=== PATIENT | male | born 1940 | race Caucasian/White ===

== ENCOUNTER 2016-08-07 15:06 | Inpatient (IN) | payer MEDICARE ==
--- NOTE | ~2016-08-07 | TEE ---
Transesophageal Echocardiogram [facility] [address] [place]. [address] NAME: ISAIAH MARIA : 42 STATUS : ADM IN [facility]#: [id number] AGE: 76 ADM/REG DATE : 08/07/16 MR#: [id number] REPORT SERV DATE: 08/13/16 DICTATED BY: STALIN CLEMENTE DATE: 08/13/16 REPORT STATUS : Draft TRANSCRIBED BY: MODL DATE: 08/13/16 VIANCA REPORT INDICATION: This is a 76-year-old male with MSSA bacteremia to rule out endocarditis. Informed consent was obtained, signed on the chart prior to proceeding. A time-out was performed. Sedation was per Anesthesia, and esophageal intubation was without difficulty. TECH: TD. RECORDING QUATLITY: The overall quality of study was adequate. PROCEDURE PERFORMED: 3D interrogation of the central venous catheter tip was performed with personal online manual manipulation of the 3D data set to further assess for possible vegetation. FINDINGS: Valves: 1. The aortic valve morphology is trileaflet with adequate mobility. There is mild sclerosis and mild degenerative changes with no stenosis. There is mild aortic regurgitation. Mobile mildly thickened leaflets. Free margins are noted in off axis images, but there are no vegetations seen. 2. The mitral valve morphology is normal with mildly thickened leaflets and adequate mobility. There is no prolapse. There were no valvular vegetations. There was mild mitral regurgitation. 3. The pulmonic valve was grossly normal with adequate mobility. There was trace pulmonic regurgitation. There were no valvular vegetations seen. 4. The tricuspid valve morphology is normal with fully mobile leaflets. The valve was somewhat suboptimally seen. There were no valvular vegetations seen. There was trace tricuspid regurgitation. CHAMBERS: 1. The left atrium appears mildly to moderately dilated. There was no mass thrombus seen. 2. The left ventricle appears grossly normal in size with a visually estimated LVEF is 55%. There were no regional wall motion abnormalities. 3. The right atrium appears mildly enlarged. The superior and inferior vena cava appear normal. There is a central venous catheter tip noted traversing the superior vena cava into the right atrium terminating near the tricuspid valve. There was a small Chiari network associated with the eustachian valve that is noted. There was a tiny independently mobile echodensity associated with the catheter tip that appears to be independent of the curing network. This is consistent with possible tiny vegetation versus old chronic fibrinous changes from a chronic indwelling catheter. 4. The right ventricle was normal in size with grossly normal systolic function. OTHER: The interatrial septum was examined with multiple angulations and there was a tiny PFO with trivial [id number] interatrial shunt noted by color Doppler. There is no pericardial effusion. There was a trivial pleural effusion. The descending thoracic aorta was noted and appeared normal in caliber with mild complex atherosclerotic changes. The Transesophageal Echocardiogram [address] [address] NAME: ISAIAH MARIA : 42 STATUS : ADM IN PAT#: [id number] AGE: 76 ADM/REG DATE : 08/07/16 MR#: [id number] REPORT SERV DATE: 08/13/16 DICTATED BY: STALIN CLEMENTE. DATE: 08/13/16 REPORT STATUS : Draft TRANSCRIBED BY: MODL DATE: 08/13/16 aortic root was mildly dilated. COMPLICATIONS: None. CONCLUSION: 1. TINY INDEPENDENTLY MOBILE ECHODENSITY ASSOCIATED WITH A CENTRAL VENOUS CATHETER TIP NEAR THE TRICUSPID VALVE IN THE RIGHT ATRIUM. THIS IS CONSISTENT WITH POSSIBLE VEGETATION VERSUS OLD FIBRINOUS CHANGES FROM A CHRONIC INDWELLING CENTRAL VENOUS PORT CATHETER. 2. NO VALVULAR VEGETATIONS IDENTIFIED. 3. AORTIC VALVE SCLEROSIS WITH MILD REGURGITATION AND NO STENOSIS. 4. MILD MITRAL REGURGITATION. 5. BIATRIAL ENLARGEMENT. 6. NORMAL LV SIZE WITH PRESERVED EF. 7. TINY PATENT FORAMEN OVALE. 8. MILDLY ENLARGED AORTIC ROOT. 9. ATHEROSCLEROSIS OF THORACIC AORTA, OUTLINED ABOVE. AEA/FIORELLA Stalin Clemente M.D. / [id number] CC: Parth Epstein MD
--- NOTE | ~2016-08-07 | OP ---
Record Of Operation [facility] [address] [place]. [address] NAME: ISAIAH MARIA : 44 STATUS : DIS IN PAT#: [id number] AGE: 76 ADM/REG DATE : 08/07/16 MR#: [id number] REPORT SERV DATE: 08/30/16 DICTATED BY: MATEUS ALICEA DATE: 08/30/16 REPORT STATUS : Draft TRANSCRIBED BY: FIORELLA DATE: 08/30/16 DATE OF PROCEDURE: 08/14/2016 PREOPERATIVE DIAGNOSIS: Infected Port-A-Cath. POSTOPERATIVE DIAGNOSIS: Infected Port-A-Cath. OPERATION PERFORMED: Removal of infected Port-A-Cath. SURGEON: Mateus Alicea M.D. ANESTHESIA: General. ESTIMATED BLOOD LOSS: Less than 10 mL. IV FLUIDS: Adequate. DESCRIPTION OF OPERATION: After appropriate sedation, the patient was prepped and draped in proper sterile fashion. Skin and subcutaneous tissues overlying the Port-A-Cath were infiltrated with local anesthesia. Incision was made directly over the previous scar, subcutaneous tissues were incised down to the port capsule. The port capsule was incised. The port was removed. The catheter was backed out with the tip intact. There was no evidence of purulence. No evidence of active infection. The skin was closed loosely using interrupted 3-0 Vicryl sutures. Steri-Strips and dressings were then placed. The patient was taken to recovery room in satisfactory condition. KEMAL/FIORELLA Mateus Alicea M.D. / [id number] CC: Parth Epstein MD
--- NOTE | ~2016-08-07 | HP ---
History And Physical [facility] [id number] [place]. [address] NAME: ISAIAH MARIA : 44 STATUS : ADM IN [facility]#: [id number] AGE: 76 ADM/REG DATE : 08/07/16 MR#: [id number] REPORT SERV DATE: 08/08/16 DICTATED BY: KARY RICHARDS II DATE: 08/07/16 REPORT STATUS : Draft TRANSCRIBED BY: MODL DATE: 08/07/16 DATE OF ADMISSION: 08/07/2016 CHIEF COMPLAINT: Severe right foot pain and swelling. HISTORY OF PRESENT ILLNESS: The patient is a 76-year-old male with a history of metastatic non-small cell lung cancer, coronary artery disease, hypertension, CHF, and COPD, who presented to [facility] ER due to worsening right foot pain and swelling since this past Friday. The patient denies any trauma to the area. It happened spontaneously and has been slowly getting worse. He has some redness as well as swelling and he can no longer weightbear. In the ER, x-ray of the foot is fairly unremarkable, but he does have quite elevated CRP, elevated white count, and tachycardia concerning for sepsis, so the patient will be admitted on the Hospital Service. Otherwise, the patient denies any chest pain, shortness of breath, nausea, vomiting, diarrhea, or abdominal pain. Of note, the patient has been followed by Dr. Santos of [facility] for his metastatic lung cancer, however, now no longer a candidate for any further treatment, and hospice was actually recommended recently; however, the patient is refusing as he is otherwise fairly still functional up until his foot pain. REVIEW OF SYSTEMS: A 10-point review of systems is otherwise negative except for HPI. PAST MEDICAL HISTORY: 1. Metastatic ecz-pevac-dtad lung cancer to bilateral lungs, previously followed by Dr. Santos. No longer on chemoradiation. 2. Coronary artery disease, status post stent. 3. Burkitt lymphoma, treated with chemotherapy. 4. Hypertension. 5. Debilitating and disfiguring rheumatoid arthritis. 6. Ventricular tachycardia with previous and transient defibrillator since removed. 7. Peptic ulcer disease. 8. Hyperlipidemia. 9. Diastolic congestive heart failure. 10.Previous alcoholism, but quit in . 11.Renal artery stenosis, status post stent. 12.Urinary tract infections. 13.Chronic obstructive pulmonary disease. 14.History of pneumonia. PAST SURGICAL HISTORY: Abdominal aortic aneurysm repair. ALLERGIES: PENICILLIN. SOCIAL HISTORY: Quit smoking in 2010. Quit alcohol in . He is and lives in [place], [place]. 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 History And Physical [address] [address] NAME: ISAIAH MARIA : 44 STATUS : ADM IN [facility]#: [id number] AGE: 76 ADM/REG DATE : 08/07/16 MR#: [id number] REPORT SERV DATE: 08/08/16 DICTATED BY: KARY RICHARDS II DATE: 08/07/16 REPORT STATUS : Draft TRANSCRIBED BY: FIORELLA DATE: 08/07/16 FAMILY HISTORY: Significant for heart disease in the sister. Also cancer in a sister. Mother with colon cancer. Strong family history of rheumatoid arthritis. HOME MEDICATIONS: Albuterol, Coreg, Plavix, Decadron, Marinol, [place], Ativan, Nitrostat, Compazine, Zocor, and Spiriva. PHYSICAL EXAMINATION: VITAL SIGNS: Blood pressure 102/64, pulse 114, temperature 98.5, respirations 18, and O2 saturation 100% on room air. GENERAL: The patient is alert and oriented x3. No acute distress. NECK: Supple. Nontender. No lymphadenopathy or thyromegaly. HEENT: Moist mucous membranes. Poor dentition. Pupils are equal, round, and reactive to light. Conjunctivae clear. RESPIRATORY: Diffuse bilateral crackles. No wheezes or rhonchi. Nonlabored breathing. CARDIOVASCULAR: Irregularly irregular. No murmurs, rubs, or gallops. ABDOMEN: Soft, nontender, nondistended. Normoactive bowel sounds. EXTREMITIES: The right lower extremity shows swelling to his right foot with diffuse tenderness to palpation and tenderness with movement. Erythema over the anterior surface of the metatarsals. Doppler with positive pulses. NEUROLOGIC: No focal deficits. SKIN: No lesions, rashes, or wounds. LABORATORY DATA: WBC 14.7, hemoglobin 13.8, platelets 241. Sedimentation rate 78. sodium 137, potassium 4.3, chloride 102, CO2 of 25, BUN 23, creatinine 0.94, glucose 89. Calcium 8.2, albumin 22, T bili 0.9, alkaline phosphatase 151, ALT 55, AST 42. CRP 198. RADIOGRAPHIC DATA: Right foot x-ray shows osteopenia, otherwise no acute injury or degenerative arthropathy. ASSESSMENT AND PLAN: The patient is a 76-year-old male with: 1. Questionable right foot osteomyelitis with apparent cellulitis. We will continue the patient's vancomycin and Rocephin. We will check blood cultures and MRI. 2. Metastatic lung cancer, currently hospice candidate. The patient is refusing hospice at this point in time. 3. Atrial fibrillation with rapid ventricular response with no documentation in the past of any history of atrial fibrillation likely brought on by the patient's underlying sepsis, so at this point, we will rate control with Cardizem, and given the patient's underlying condition, we will avoid any aggressive workup at this point in time. 4. Coronary artery disease. Continue the patient's Coreg and Plavix. 5. Severe RA, not currently being treated. 6. Chronic obstructive pulmonary disease. Lungs actually clear except for some chronic dry crackle. Supplemental O2 as needed. 7. Chronic diastolic congestive heart failure, currently compensated. 8. The patient is a full code. History And Physical [address] [address] NAME: ISAIAH MARIA : 44 STATUS : ADM IN [facility]#: [id number] AGE: 76 ADM/REG DATE : 08/07/16 MR#: [id number] REPORT SERV DATE: 08/08/16 DICTATED BY: KARY RICHARDS II DATE: 08/07/16 REPORT STATUS : Draft TRANSCRIBED BY: FIORELLA DATE: 08/07/16 MAGGI/FIORELLA Kary Richards II, MD / [id number] CC: Kary Richards II, MD NO PCP
--- NOTE | ~2016-08-07 | CN ---
Consultation Report [facility] [address] [place]. [address] NAME: ISAIAH MARIA : 44 STATUS : ADM IN [facility]#: [id number] AGE: 76 ADM/REG DATE : 08/07/16 MR#: [id number] REPORT SERV DATE: 08/09/16 DICTATED BY: TORO JOHNSON DATE: 08/09/16 REPORT STATUS : Draft TRANSCRIBED BY: MODL DATE: 08/09/16 INFECTIOUS DISEASE CONSULT DATE OF CONSULTATION: REASON FOR REFERRAL: Staph sepsis. HISTORY OF PRESENT ILLNESS: The patient is a 76-year-old male. He has history of hypertension, coronary artery disease, congestive heart failure, chronic obstructive pulmonary disease, extensive tobacco abuse history in the past. He has metastatic non-small cell cancer of the lung that has progressed and is no longer a candidate for any more chemotherapy. He came in on 08/07/2016, complaining of about two to three days of increasing pain in his right foot. He denied injuring it, has just become increasingly sore, painful, red, and swollen. He was afebrile, but had an elevated white blood cell count when he presented 14,000, an elevated sedimentation rate is 78. So, concern was raised for infection. He appeared generally ill. Cultures were taken. He was started on vancomycin and cefepime. His blood cultures have now returned positive too for methicillin- sensitive Staph aureus. With the antibiotics, his foot redness, swelling, and pain have all improved rapidly, and he says it is not really bothering him anymore. He has pain in other joints, but has rheumatoid arthritis and chronic swelling and pain in those. He also has a Port-A-Cath that he was getting his chemotherapy, states he has not had any increased pain and redness there. No purulence. PAST MEDICAL HISTORY: Otherwise unremarkable. MEDICATIONS: As mentioned above. ALLERGIES: HE IS ALLERGIC TO PENICILLIN, WHICH CAUSES A RASH BUT HAS TAKEN CEPHALOSPORIN WITHOUT INCIDENT IN THE PAST. HE IS RETIRED, . PREVIOUSLY SMOKED. ALSO HAD PREVIOUS HISTORY OF ALCOHOL ABUSE, BUT HAS NOT DRUNK IN 20 YEARS. FAMILY HISTORY: Noncontributory. PHYSICAL EXAMINATION: GENERAL: Chronically ill-appearing, elderly, male, lying quietly in bed. He is alert and oriented x3. VITAL SIGNS: His temperature here has been normal. It is 97.8 at present with a pulse of 84, respirations 16, blood pressure 173/90, weight 72 kg. HEENT: Sclerae clear. No oral lesions. NECK: Supple without meningeal signs. LUNGS: There are crackles heard in the bases bilaterally and generally decreased breath sounds consistent with emphysema. HEART: Regular rate and rhythm. I do not hear well enough to determine if there is a murmur. Consultation Report [facility] [address] [place]. [address] NAME: ISAIAH MARIA : 44 STATUS : ADM IN PAT#: [id number] AGE: 76 ADM/REG DATE : 08/07/16 MR#: [id number] REPORT SERV DATE: 08/09/16 DICTATED BY: TORO JOHNSON DATE: 08/09/16 REPORT STATUS : Draft TRANSCRIBED BY: FIORELLA DATE: 08/09/16 ABDOMEN: Soft, nontender. Positive bowel sounds. EXTREMITIES: He has multiple ecchymoses, all of his extremities. None of which appear to be acute. His right foot is swollen compared to the left, but not warm and red and not tender. This appears generally edematous. LABORATORY DATA: White blood cell count was 14.7, when he came in it was 6.9 today with hematocrit 32.5, platelets 220, 81 segs, 4 bands on the initial diff. Sedimentation rate 78. BUN and creatinine 24 and 0.85. He had an MRI of the foot that shows cellulitis possible tenosynovitis, but no osteomyelitis. IMPRESSION: Methicillin-sensitive Staph aureus sepsis. Source to consider would be first of all the foot since this is what he came in with, but it does not appear that it is acutely infected at present on exam. Secondly, his Port-A-Cath could be the source. Finally a possible endocarditis. RECOMMENDATIONS: 1. Change antibiotics to Ancef. 2. Echocardiogram. 3. Repeat the blood cultures in about two days and if those continue to be positive, has consider removing the port and at this point, I do not think any surgical intervention is needed on his foot. Finally I will follow the patient with you. I appreciate very much your consulting on this patient. IDA/FIORELLA Toro Johnson M.D. / [id number] CC: Andres Louis II, MD
--- NOTE | ~2016-08-07 | DS ---
Discharge Summary [facility] [address] [place]. [address] NAME: ISAIAH MARIA : 44 STATUS : DIS IN PAT#: [id number] AGE: 76 ADM/REG DATE : 08/07/16 MR#: [id number] REPORT SERV DATE: 08/17/16 DICTATED BY: SEGUN OBRIEN DATE: 08/16/16 REPORT STATUS : Draft TRANSCRIBED BY: MODL DATE: 08/16/16 ADMISSION DATE: 08/07/2016 DISCHARGE DATE: 08/16/2016 DISCHARGE DIAGNOSES: 1. Bacteremia methicillin-sensitive Staphylococcus aureus. 2. Right foot cellulitis/tenosynovitis. 3. Right elbow pain. 4. Atrial fibrillation, paroxysmal. 5. Non-small cell lung cancer, metastasis/Burkitt lymphoma. 6. Chronic obstructive pulmonary disease. CONSULTATIONS: 1. Infectious Disease, Dr. Tello Encarnacion. 2. Orthopedic, Dr. Jayme Hoang. IMAGING STUDIES: 1. Foot x-ray, 08/07/2016. Impression: Osteopenia. No acute injury or severe degeneration noted. 2. MRI of the lower extremity, 08/07/2016. Impression: Cellulitis and tenosynovitis identified. No osteomyelitis changes noted. 3. Right elbow, 08/08/2016. Multiple lytic areas involving the distal right humerus and the proximal ulnar and radius that may represent a benign bone cyst. If this is a history of malignancy there could be a possibility to represent metastatic disease. 4. VIANCA on 08/13/[address] Stalin Gonzalez. HOSPITAL COURSE: Please refer to history and physical dictated by Dr. Andres Louis on 08/07/2016 for complete admission details as well as consultation note by Dr. Hoang and Dr. Tello Encarnacion. The patient is a 76-year-old male, who presents with a history of metastatic non-small cell lung cancer. He presented to [facility] with complaints of severe right foot pain and swelling. The patient stated at the time of admission, the pain had been increasing in intensity. Imaging was obtained in the emergency room which was unremarkable, but noted an elevated CRP and elevated white count. The patient was tachycardic. The patient was admitted to the hospital for further evaluation. 1. Bacteremia. The patient had two positive blood cultures were noted MSSA. ID was consulted to see. Antibiotics were per Infectious Disease. Port-A-Cath was concerning for infection, this was removed and this was cultured. The patient did undergo an echocardiogram which did rule out endocarditis and was unremarkable. The patient was initially on vancomycin and Rocephin, this was changed to Ancef per Infectious Disease. The patient will be discharged home and complete Ancef through 08/29/2016. PICC line was placed prior to discharge. Home Health will follow the patient, will have weekly lab work. 2. Right foot cellulitis. Imaging was obtained which is noted above. The patient did deny trauma or injury to the area. Lower extremity did appear edematous with redness, Discharge Summary [facility] [id number] [facility] [place]. [address] NAME: ISAIAH MARIA : 44 STATUS : DIS IN [facility]#: [id number] AGE: 76 ADM/REG DATE : 08/07/16 MR#: [id number] REPORT SERV DATE: 08/17/16 DICTATED BY: SEGUN OBRIEN DATE: 08/16/16 REPORT STATUS : Draft TRANSCRIBED BY: FIORELLA DATE: 08/16/16 was evaluated by Orthopedic. The patient did undergo a joint aspiration at bedside less than 1 mL of fluid was expressed, was noted blood tinged. Again, the patient is being followed by Dr. Tello Encarnacion with antibiotic. The patient has been able to bear weight on ankle. 3. Right elbow pain, acute. This has been ongoing, slightly tender. Imaging was obtained which is noted above. No intervention was indicated at this time. 4. Atrial fibrillation. This has been stable during his hospital stay. We will continue Plavix and the Rythmol upon discharge. 5. Non-small cell lung cancer with metastasis/Burkitt lymphoma. The patient is appropriate for hospice, but the patient did decline at this time. The patient is still being followed by Dr. Santos. 6. Chronic obstructive pulmonary disease. The patient has had no exacerbation during his stay. He will be monitored by primary care. This patient is being discharged home in hemodynamically stable condition. He will follow up with his primary care in two weeks and will continue to have weekly lab work with home health. Antibiotic will continue through 08/29/2016. DISCHARGE MEDICATIONS: 1. Coreg 12.5 mg one p.o. twice daily. 2. Ancef 2 g IV every 8 hours. 3. Plavix 75 mg one p.o. daily. 4. Decadron 4 mg one p.o. twice daily. 5. Marinol 10 mg p.o. every 8 hours. 6. MiraLAX powder one pack p.o. daily. 7. Zocor 20 mg one p.o. daily. 8. Spiriva inhaler one cap inhale daily. 9. ProAir inhaler two puffs inhale twice daily p.r.n. for shortness of breath. 10.Hydrocodone 7.5/325 mg one p.o. every 8 hours p.r.n. for pain. 11.Ativan 1 mg one p.o. twice daily. 12.Nitroglycerin 0.4 mg sublingual p.r.n. chest pain. 13.Compazine 10 mg p.o. every 4 to 6 hours p.r.n. for nausea. This discharge took less than 30 minutes. SIDNEY/FIORELLA Segun Obrien NP / [id number] CC: Parth Epstein MD
--- NOTE | ~2016-08-07 | IDS ---
Interim Discharge Summary [facility] [address] [place]. [address] NAME: ISAIAH MARIA : 44 STATUS : ADM IN [facility]#: [id number] AGE: 76 ADM/REG DATE : 08/07/16 MR#: [id number] REPORT SERV DATE: 08/13/16 DICTATED BY: DATE: REPORT STATUS : Draft TRANSCRIBED BY: MODL DATE: 08/12/16 ADMISSION DATE: 08/07/2016 DISCHARGE DATE: DISCHARGE DATE: Unknown. Interim summary covers dates of service between 08/08/2016 and 08/12/2016. CONSULTATIONS: 1. Dr. Tello Encarnacion, Infectious Disease. 2. Jayme Hoang, Ortho/Podiatry. INTERIM DIAGNOSES: 1. Bacteremia, MSSA. 2. Right foot cellulitis/tenosynovitis. 3. Right elbow pain. 4. Atrial fibrillation, paroxysmal. 5. Non-small cell lung cancer, metastases/Burkitt lymphoma. 6. Chronic obstructive pulmonary disease, chronic. HOSPITAL COURSE: 1. Bacteremia. The patient had two positive of two blood cultures collected. MSSA. ID is following daily. Exact etiology is unclear. However, patient also has right foot cellulitis/tenosynovitis. Id initially had concern for left Port-A-Cath infection; however, second set of blood cultures while on antibiotics, preliminary result no growth at one day. Echocardiogram to rule out endocarditis was unremarkable. VIANCA is pending for in the morning. Continue antibiotics, to be managed per Infectious Disease. The patient was initially placed on vancomycin and Rocephin. The patient is now on single agent Ancef. The patient is afebrile and white blood cell count is within normal limits, however, has slowly trended up over the past several days. Need to monitor closely for poor response to antibiotic therapy. 2. Right foot cellulitis/tenosynovitis the patient was hospitalized in March for similar symptoms to include ulcers to bilateral ankles. Cause of cellulitis is unclear. The patient denies recent trauma or injury. Foot initially appeared edematous with erythema to the dorsal aspect. Erythema resolved with antibiotic; however, edema has increased over the past 24 hours. The patient had decrease in pain upon initial antibiotic therapy; however, the pain has now increased and patient is suffering significant pain associated with weightbearing which is making it difficult to ambulate. PT was consulted for fall risk recommendations. The patient declined physical therapy intervention as well as recommendation for home health care at discharge. 3. Right elbow pain acute, several days ago, patient's right elbow was tender and slightly edematous. X-ray obtained indicated bone cyst versus metastatic disease. No intervention is indicated. Edema has subsided and pain has lessened but still present. 4. Atrial fibrillation, paroxysmal, the patient's heart rate is stable. Continue Plavix. The patient's rhythm is currently normal sinus. Initiate defensive monitoring if heart Interim Discharge Summary [facility] [address] [place]. [address] NAME: ISAIAH MARIA : 44 STATUS : ADM IN PAT#: [id number] AGE: 76 ADM/REG DATE : 08/07/16 MR#: [id number] REPORT SERV DATE: 08/13/16 DICTATED BY: DATE: REPORT STATUS : Draft TRANSCRIBED BY: MODL DATE: 08/12/16 rate is equal to or greater than 90. The patient did initially have atrial fibrillation with RVR upon admission and diltiazem was started. The patient converted back to normal sinus rhythm and was confirmed by EKG. Heart rate was running in the 60s and diltiazem was discontinued. Home dose of carvedilol has been continued. 5. Non-small cell lung cancer with metastasis/Burkitt lymphoma. The patient is not a candidate for future treatment but declined hospice. The patient is still followed up occasionally by Dr. Santos. 6. Chronic obstructive pulmonary disease, chronic. The patient has no signs or symptoms of acute exacerbation. Continue inhaler. Nebulizer treatments have not been indicated at this time. If they are warranted, heart rate needs to be monitored closely. DISPOSITION PLAN: Date of discharge is undetermined secondary to unclear source of bacteremia and cytology pending from fine-needle aspiration of the right foot. CARLA/FIORELLA JEREMY Deal / [id number] CC: Andres Louis II, MD
--- NOTE | ~2016-08-07 | CN ---
Consultation Report [facility] [address] [place]. [address] NAME: ISAIAH MARIA : 44 STATUS : ADM IN [facility]#: [id number] AGE: 76 ADM/REG DATE : 08/07/16 MR#: [id number] REPORT SERV DATE: 08/13/16 DICTATED BY: LM DUMONT DATE: 08/13/16 REPORT STATUS : Draft TRANSCRIBED BY: MODMariaelena DATE: 08/13/16 DATE OF CONSULTATION: 08/12/2016 REASON FOR CONSULTATION: Possible right ankle joint sepsis. HISTORY OF PRESENT ILLNESS: The patient is a 76-year-old white male who presented to the hospital on the relating a two to three day history of pain in his right foot. The patient denies injury to the foot, denies open wounds or bleeding to the foot, but does have a previous history of wounds on the foot. He was started on IV antibiotics and blood cultures were positive. Initial white count upon presentation was 14 and sed rate was 78. The and patient relate significant improvement to the foot currently with redness having gone away as well as improved swelling. The patient states he is able to walk on the foot with minimal pain at this time. PAST MEDICAL HISTORY: Includes hypertension, coronary artery disease, CHF, COPD, and metastatic non-small cell cancer of lung. MEDICATIONS: List of medications reviewed in chart. ALLERGIES: PENICILLIN. SOCIAL HISTORY: Previous smoker. His is at bedside. Previous history of alcohol abuse. FAMILY HISTORY: Unremarkable. REVIEW OF SYSTEMS: No other pertinent findings on review of systems other than previously stated above. Currently denies chest pain. Currently denies nausea, vomiting, fever, or chills. PHYSICAL EXAMINATION: GENERAL: The patient is seen at bedside, resting comfortably with family present including his . He is a frail white male, resting, in no apparent distress. Alert and oriented x3. VITAL SIGNS: Currently, his vital signs are stable. VASCULAR STATUS: Intact. HEENT: Normocephalic and atraumatic. No visible drainage. Missing teeth. LUNGS: Unlabored breathing with symmetrical effort. CARDIOVASCULAR: Palpable pedal pulses. Regular rate. There is no erythema to the bilateral foot or ankles. ABDOMEN: Nondistended. DERMATOLOGIC: There are no open lesions. No macerations appreciated. There is no erythema. There is no increased skin temperature. There is pitting edema to the right ankle. There is no soft tissue crepitus. Again, no drainage. MUSCULOSKELETAL: There is mild pain to the right ankle. There is no pain with range of Consultation Report [facility] [address] [place]. [address] NAME: ISAIAH MARIA : 44 STATUS : ADM IN PAT#: [id number] AGE: 76 ADM/REG DATE : 08/07/16 MR#: [id number] REPORT SERV DATE: 08/13/16 DICTATED BY: LM DUMONT DATE: 08/13/16 REPORT STATUS : Draft TRANSCRIBED BY: MODL DATE: 08/13/16 motion. Again, there is no soft tissue crepitus. There is no pain to the flexor tendons including the posterior tibial and FHL and FDL with palpation and with range of motion of the dorsiflexion and plantarflexion of the digits. Again, no increased skin temperature and no erythema is present. Pitting edema again is present. LABORATORY DATA: White count 6.9, sed rate 78. IMAGING: MRI showed some mild fluid within the tibiotalar joint anteriorly. There was fluid as well concerning for synovitis posteriorly on the flexor tendons. ASSESSMENT: Evaluate for septic ankle/monitor for infectious tenosynovitis. PLAN: Today, bedside joint aspiration was performed under local anesthesia utilizing aseptic technique, Betadine prep was performed. Upon aspiration of the ankle joint, less than 1 mL of fluid was expressed, this was not purulent in nature, it was more of blood tinged. Orders were written for crystal analysis, Gram stain, and cell count. As far as the potential infectious tenosynovitis is concerned, the clinical picture is not very impressive, however, I will monitor this as possible I and D may need to be performed. Clinically, there is no erythema and there is minimal to no pain to those tendons. We will discuss with Dr. Encarnacion. Continue IV antibiotics per Dr. Encarnacion, and I will follow up with the patient. SHRADDHA/FIORELLA Una Noonan#: [id number] / [id number] CC: Parth Epstein MD NO PCP
[~2016-08-07 15:06] MED LIST: ALBUTEROL5 INH; ALTACE10 MG PO; AMB5 PO; ASA5GR PO; ASAB PO; AT25 PO; ATV1 PO; BACDS PO; COMP10B PO; COREG12 PO; COREG25 PO; DEX4 PO; FOLIC PO; KLONO5 PO; LEVAQUIN750 MG PO; LIPITOR20 PO; LOP50 PO; LORT7 PO; LORTAB 5 PO; MARINOL10 MG PO; NITROQUICK0.4 MG SL; NITROSTAT0.4 MG SL; NORCO1 TA2 PO; PLAVIX PO; PRIN10 PO; PRIN20 PO; PROVHFA INH; SENTAB PO; SPIRIVA INH; STERAPRED DS10 MG PO; T PO; ULTRAM50 PO; Z300 PO; ZITH250 PO; ZOCOR20 PO; ZOCOR40 PO; ZOFRAN8 PO
[2016-08-07 15:29] LABS: HEMATOCRIT 41.7 % (40.0-51.0); HEMOGLOBIN 13.8 g/dL (13.6-17.8); MEAN CORPUS HGB CONC 33.1 g/dL (32.0-36.0); MEAN CORPUSCULAR HEMOGLOB 29.3 pg (26.0-34.0); MEAN PLATELET VOLUME 9.5 fL (9.2-13.0); RBC DISTRIBUTION WIDTH 17.4 % (12.0-16.0); RED CELL COUNT 4.71 10/6/uL (4.7-6.1); WHITE BLOOD CELLS 14.7 10/3/uL (4.5-10.5)
[2016-08-07 15:30] LABS: DIFFERENTIAL ORDERED Y; MEAN CORPUSCULAR VOLUME 88.5 fL (80-100); PLATELET COUNT 241 10/3/uL (150-400)
[2016-08-07 15:44] LABS: A/G RATIO 0.5 (0.7-1.9); ALBUMIN 2.2 G/DL (3.5-5.0); BUN (BLOOD UREA NITROGEN) 23 MG/DL (6-23); CALCIUM, SERUM 8.2 MG/DL (8.5-10.4); CHLORIDE, SERUM 102 MMOL/L (96-112); CO2 (CARBON DIOXIDE) 25 MMOL/L (24-34); CREATININE 0.94 MG/DL (0.70-1.30); GFR AFRICAN AMERICAN 92 ML/MIN (>=60); GFR NON AFRICAN AMERICAN 80 ML/MIN (>=60); GLOBULIN 4.5 G/DL (2.5-4.1); GLUCOSE, SERUM 89 MG/DL (60-99); POTASSIUM, SERUM 4.3 MMOL/L (3.5-5.3); SGOT(AST) 42 U/L (5-40); SGPT(ALT) 55 U/L (5-65); SODIUM, SERUM 137 MMOL/L (135-148); TOTAL BILIRUBIN 0.9 MG/DL (0-1.2); TOTAL PROTEIN 6.7 G/DL (6.0-8.5)
[2016-08-07 15:45] LABS: ALKALINE PHOSPHATASE 151 U/L (45-117)
[2016-08-07 16:11] LABS: ANISOCYTOSIS 1+ (5-10/OIF) (0-5/OIF); BAND NEUTROPHILS 4 %; LYMPHOCYTES 11 %; LYMPHOCYTES ABSOLUTE (CALC) 1.62 10/3/uL (0.67-4.30); MONOCYTES 4 %; MONOCYTES ABSOLUTE (CALC) 0.59 10/3/uL (0.21-1.20); PLATELET ESTIMATE ADQ (ADEQUATE); SEGMENTED NEUTROPHIL (0) 81 %; TOTAL NUCLEATED CELLS 100
[2016-08-07 16:26] LABS: SED RATE 78 MM/HR (0-15)
[2016-08-07] MEDS ORDERED: PROAIR HFA INH (17:31)
[2016-08-07] MEDS ORDERED: MARINOL10 MG PO (17:31)
[2016-08-07] MEDS ORDERED: COREG12 PO (17:32)
[2016-08-07] MEDS ORDERED: KLONO5 PO (17:32)
[2016-08-07] MEDS ORDERED: DEX4 PO (17:32)
[2016-08-07] MEDS ORDERED: ATV1 PO (17:33)
[2016-08-07] MEDS ORDERED: NORCO1 TA2 PO (17:33)
[2016-08-07] MEDS ORDERED: NITROSTAT0.4 MG SL (17:34)
[2016-08-07] MEDS ORDERED: PLAVIX PO (17:34)
[2016-08-07] MEDS ORDERED: ZOCOR20 PO (17:34)
[2016-08-07] MEDS ORDERED: COMP10B PO (17:34)
[2016-08-07] MEDS ORDERED: SPIRIVA INH (17:35)
[2016-08-08 07:27] LABS: BASOPHILS 0.1 %; BASOPHILS ABSOLUTE 0.01 10/3/uL (0.0-0.16); EOSINOPHILS 0 %; HEMOGLOBIN 11.7 g/dL (13.6-17.8); IMMATURE GRANULOCYTES ABSOLUTE 0.31 10/3/uL (0.0-0.11); LYMPHOCYTES ABSOLUTE 1.23 10/3/uL (0.67-4.30); MEAN CORPUS HGB CONC 32.2 g/dL (32.0-36.0); MEAN CORPUSCULAR VOLUME 89.9 fL (80-100); MEAN PLATELET VOLUME 9.5 fL (9.2-13.0); MONOCYTES 4.2 %; MONOCYTES ABSOLUTE 0.43 10/3/uL (0.21-1.20); NEUTROPHILS 80.7 %; NEUTROPHILS ABSOLUTE 8.27 10/3/uL (2.02-8.40); PLATELET COUNT 203 10/3/uL (150-400); RBC DISTRIBUTION WIDTH 17.8 % (12.0-16.0); RED CELL COUNT 4.04 10/6/uL (4.7-6.1); WHITE BLOOD CELLS 10.3 10/3/uL (4.5-10.5)
[2016-08-08 07:30] LABS: HEMATOCRIT 36.3 % (40.0-51.0); MANUAL DIFF NO %
[2016-08-08 07:41] LABS: BUN (BLOOD UREA NITROGEN) 25 MG/DL (6-23); CALCIUM, SERUM 7.7 MG/DL (8.5-10.4); CHLORIDE, SERUM 106 MMOL/L (96-112); CO2 (CARBON DIOXIDE) 21 MMOL/L (24-34); CREATININE 0.93 MG/DL (0.70-1.30); GFR AFRICAN AMERICAN 93 ML/MIN (>=60); GFR NON AFRICAN AMERICAN 81 ML/MIN (>=60); GLUCOSE, SERUM 100 MG/DL (60-99); POTASSIUM, SERUM 4.7 MMOL/L (3.5-5.3); SODIUM, SERUM 137 MMOL/L (135-148)
[2016-08-09 06:11] LABS: BASOPHILS 0.1 %; BASOPHILS ABSOLUTE 0.01 10/3/uL (0.0-0.16); EOSINOPHILS 0 %; HEMOGLOBIN 10.7 g/dL (13.6-17.8); IMMATURE GRANULOCYTES 4.5 %; IMMATURE GRANULOCYTES ABSOLUTE 0.31 10/3/uL (0.0-0.11); LYMPHOCYTES 12.7 %; LYMPHOCYTES ABSOLUTE 0.88 10/3/uL (0.67-4.30); MEAN CORPUS HGB CONC 32.9 g/dL (32.0-36.0); MEAN CORPUSCULAR HEMOGLOB 29.3 pg (26.0-34.0); MEAN PLATELET VOLUME 9.7 fL (9.2-13.0); MONOCYTES 7.4 %; MONOCYTES ABSOLUTE 0.51 10/3/uL (0.21-1.20); NEUTROPHILS 75.3 %; NEUTROPHILS ABSOLUTE 5.22 10/3/uL (2.02-8.40); PLATELET COUNT 220 10/3/uL (150-400); RED CELL COUNT 3.65 10/6/uL (4.7-6.1); WHITE BLOOD CELLS 6.9 10/3/uL (4.5-10.5)
[2016-08-09 06:12] LABS: HEMATOCRIT 32.5 % (40.0-51.0); MANUAL DIFF NO %
[2016-08-09 06:15] LABS: BUN (BLOOD UREA NITROGEN) 24 MG/DL (6-23); CALCIUM, SERUM 7.5 MG/DL (8.5-10.4); CHLORIDE, SERUM 109 MMOL/L (96-112); CO2 (CARBON DIOXIDE) 21 MMOL/L (24-34); CREATININE 0.85 MG/DL (0.70-1.30); GFR AFRICAN AMERICAN 99 ML/MIN (>=60); GFR NON AFRICAN AMERICAN 86 ML/MIN (>=60); GLUCOSE, SERUM 146 MG/DL (60-99); POTASSIUM, SERUM 4.3 MMOL/L (3.5-5.3); SODIUM, SERUM 141 MMOL/L (135-148)
[2016-08-10 06:25] LABS: BASOPHILS 0.3 %; BASOPHILS ABSOLUTE 0.02 10/3/uL (0.0-0.16); EOSINOPHILS 0 %; HEMATOCRIT 34.6 % (40.0-51.0); HEMOGLOBIN 11.1 g/dL (13.6-17.8); IMMATURE GRANULOCYTES 4.6 %; IMMATURE GRANULOCYTES ABSOLUTE 0.34 10/3/uL (0.0-0.11); LYMPHOCYTES 14.4 %; LYMPHOCYTES ABSOLUTE 1.06 10/3/uL (0.67-4.30); MEAN CORPUS HGB CONC 32.1 g/dL (32.0-36.0); MEAN CORPUSCULAR VOLUME 90.3 fL (80-100); MEAN PLATELET VOLUME 9.6 fL (9.2-13.0); MONOCYTES 5.4 %; NEUTROPHILS 75.3 %; NEUTROPHILS ABSOLUTE 5.56 10/3/uL (2.02-8.40); PLATELET COUNT 220 10/3/uL (150-400); RBC DISTRIBUTION WIDTH 16.6 % (12.0-16.0); RED CELL COUNT 3.83 10/6/uL (4.7-6.1); WHITE BLOOD CELLS 7.4 10/3/uL (4.5-10.5)
[2016-08-10 06:28] LABS: MANUAL DIFF NO %
[2016-08-10 06:36] LABS: BUN (BLOOD UREA NITROGEN) 23 MG/DL (6-23); CALCIUM, SERUM 7.3 MG/DL (8.5-10.4); CHLORIDE, SERUM 111 MMOL/L (96-112); CO2 (CARBON DIOXIDE) 20 MMOL/L (24-34); CREATININE 0.81 MG/DL (0.70-1.30); GFR AFRICAN AMERICAN 101 ML/MIN (>=60); GFR NON AFRICAN AMERICAN 88 ML/MIN (>=60); POTASSIUM, SERUM 4.6 MMOL/L (3.5-5.3); SODIUM, SERUM 140 MMOL/L (135-148)
[2016-08-10 06:37] LABS: GLUCOSE, SERUM 115 MG/DL (60-99)
[2016-08-11 07:36] LABS: HEMATOCRIT 36.4 % (40.0-51.0); HEMOGLOBIN 11.9 g/dL (13.6-17.8); MEAN CORPUS HGB CONC 32.7 g/dL (32.0-36.0); MEAN CORPUSCULAR HEMOGLOB 28.6 pg (26.0-34.0); MEAN PLATELET VOLUME 9.6 fL (9.2-13.0); PLATELET COUNT 220 10/3/uL (150-400); RBC DISTRIBUTION WIDTH 16.7 % (12.0-16.0); RED CELL COUNT 4.16 10/6/uL (4.7-6.1); WHITE BLOOD CELLS 8.7 10/3/uL (4.5-10.5)
[2016-08-11 07:39] LABS: MANUAL DIFF YES %; MEAN CORPUSCULAR VOLUME 87.5 fL (80-100)
[2016-08-11 07:41] LABS: BUN (BLOOD UREA NITROGEN) 26 MG/DL (6-23); CALCIUM, SERUM 8.1 MG/DL (8.5-10.4); CHLORIDE, SERUM 107 MMOL/L (96-112); CO2 (CARBON DIOXIDE) 24 MMOL/L (24-34); CREATININE 0.93 MG/DL (0.70-1.30); GFR AFRICAN AMERICAN 93 ML/MIN (>=60); GFR NON AFRICAN AMERICAN 81 ML/MIN (>=60); POTASSIUM, SERUM 4.5 MMOL/L (3.5-5.3); SODIUM, SERUM 139 MMOL/L (135-148)
[2016-08-11 07:42] LABS: GLUCOSE, SERUM 90 MG/DL (60-99)
[2016-08-11 07:57] LABS: BAND NEUTROPHILS 4 %; IMMATURE GRANS ABSOLUTE (CALC) 0.17 10/3/uL (0.0-0.11); LYMPHOCYTES 17 %; LYMPHOCYTES ABSOLUTE (CALC) 1.48 10/3/uL (0.67-4.30); METAMYELOCYTES 1 %; MONOCYTES 8 %; MYELOCYTES 1 %; NEUTROPHILS ABSOLUTE (CALC) 6.35 10/3/uL (2.02-8.40); PLATELET ESTIMATE ADQ (ADEQUATE); SEGMENTED NEUTROPHIL (0) 69 %; TOTAL NUCLEATED CELLS 100
[2016-08-11 07:58] LABS: RBC MORPHOLOGY NORM (NORMAL)
[2016-08-12 08:11] LABS: HEMATOCRIT 37.2 % (40.0-51.0); HEMOGLOBIN 12.3 g/dL (13.6-17.8); MEAN CORPUS HGB CONC 33.1 g/dL (32.0-36.0); MEAN CORPUSCULAR HEMOGLOB 28.9 pg (26.0-34.0); MEAN CORPUSCULAR VOLUME 87.3 fL (80-100); MEAN PLATELET VOLUME 9.6 fL (9.2-13.0); PLATELET COUNT 231 10/3/uL (150-400); RBC DISTRIBUTION WIDTH 16.1 % (12.0-16.0); RED CELL COUNT 4.26 10/6/uL (4.7-6.1); WHITE BLOOD CELLS 10.3 10/3/uL (4.5-10.5)
[2016-08-12 08:12] LABS: MANUAL DIFF YES %
[2016-08-12 08:21] LABS: BUN (BLOOD UREA NITROGEN) 25 MG/DL (6-23); CALCIUM, SERUM 8.1 MG/DL (8.5-10.4); CHLORIDE, SERUM 105 MMOL/L (96-112); CO2 (CARBON DIOXIDE) 26 MMOL/L (24-34); GFR AFRICAN AMERICAN 97 ML/MIN (>=60); GFR NON AFRICAN AMERICAN 84 ML/MIN (>=60); GLUCOSE, SERUM 75 MG/DL (60-99); POTASSIUM, SERUM 4.6 MMOL/L (3.5-5.3); SODIUM, SERUM 139 MMOL/L (135-148)
[2016-08-12 08:51] LABS: BAND NEUTROPHILS 9 %; IMMATURE GRANS ABSOLUTE (CALC) 0.62 10/3/uL (0.0-0.11); LYMPHOCYTES 15 %; LYMPHOCYTES ABSOLUTE (CALC) 1.55 10/3/uL (0.67-4.30); METAMYELOCYTES 4 %; MONOCYTES 5 %; MONOCYTES ABSOLUTE (CALC) 0.52 10/3/uL (0.21-1.20); MYELOCYTES 2 %; NEUTROPHILS ABSOLUTE (CALC) 7.62 10/3/uL (2.02-8.40); PLATELET ESTIMATE ADQ (ADEQUATE); RBC MORPHOLOGY NORM (NORMAL); SEGMENTED NEUTROPHIL (0) 65 %; TOTAL NUCLEATED CELLS 100
[2016-08-13 05:22] LABS: HEMATOCRIT 37.4 % (40.0-51.0); HEMOGLOBIN 12.2 g/dL (13.6-17.8); MEAN CORPUS HGB CONC 32.6 g/dL (32.0-36.0); MEAN CORPUSCULAR HEMOGLOB 28.6 pg (26.0-34.0); MEAN CORPUSCULAR VOLUME 87.8 fL (80-100); MEAN PLATELET VOLUME 9.6 fL (9.2-13.0); PLATELET COUNT 243 10/3/uL (150-400); RBC DISTRIBUTION WIDTH 16.4 % (12.0-16.0); RED CELL COUNT 4.26 10/6/uL (4.7-6.1); WHITE BLOOD CELLS 11.8 10/3/uL (4.5-10.5)
[2016-08-13 05:23] LABS: MANUAL DIFF YES %
[2016-08-13 05:31] LABS: BUN (BLOOD UREA NITROGEN) 27 MG/DL (6-23); CALCIUM, SERUM 7.8 MG/DL (8.5-10.4); CHLORIDE, SERUM 105 MMOL/L (96-112); CO2 (CARBON DIOXIDE) 23 MMOL/L (24-34); CREATININE 0.82 MG/DL (0.70-1.30); GFR AFRICAN AMERICAN 101 ML/MIN (>=60); GFR NON AFRICAN AMERICAN 87 ML/MIN (>=60); POTASSIUM, SERUM 4.5 MMOL/L (3.5-5.3); SODIUM, SERUM 138 MMOL/L (135-148)
[2016-08-13 05:32] LABS: GLUCOSE, SERUM 97 MG/DL (60-99)
[2016-08-13 06:26] LABS: BAND NEUTROPHILS 6 %; IMMATURE GRANS ABSOLUTE (CALC) 0.83 10/3/uL (0.0-0.11); LYMPHOCYTES 12 %; LYMPHOCYTES ABSOLUTE (CALC) 1.42 10/3/uL (0.67-4.30); METAMYELOCYTES 7 %; MONOCYTES 7 %; MONOCYTES ABSOLUTE (CALC) 0.83 10/3/uL (0.21-1.20); NEUTROPHILS ABSOLUTE (CALC) 8.73 10/3/uL (2.02-8.40); PLATELET ESTIMATE ADQ (ADEQUATE); SEGMENTED NEUTROPHIL (0) 68 %; TOTAL NUCLEATED CELLS 100
[2016-08-13 06:27] LABS: RBC MORPHOLOGY NORM (NORMAL)
[2016-08-14 05:26] LABS: HEMATOCRIT 37.3 % (40.0-51.0); HEMOGLOBIN 12.2 g/dL (13.6-17.8); MEAN CORPUS HGB CONC 32.7 g/dL (32.0-36.0); MEAN CORPUSCULAR HEMOGLOB 28.6 pg (26.0-34.0); MEAN CORPUSCULAR VOLUME 87.4 fL (80-100); MEAN PLATELET VOLUME 9.6 fL (9.2-13.0); PLATELET COUNT 180 10/3/uL (150-400); RBC DISTRIBUTION WIDTH 16.4 % (12.0-16.0); RED CELL COUNT 4.27 10/6/uL (4.7-6.1); WHITE BLOOD CELLS 14.1 10/3/uL (4.5-10.5)
[2016-08-14 05:27] LABS: MANUAL DIFF YES %
[2016-08-14 05:45] LABS: BUN (BLOOD UREA NITROGEN) 25 MG/DL (6-23); CALCIUM, SERUM 7.8 MG/DL (8.5-10.4); CHLORIDE, SERUM 103 MMOL/L (96-112); CO2 (CARBON DIOXIDE) 25 MMOL/L (24-34); CREATININE 0.89 MG/DL (0.70-1.30); GFR AFRICAN AMERICAN 98 ML/MIN (>=60); GFR NON AFRICAN AMERICAN 84 ML/MIN (>=60); GLUCOSE, SERUM 90 MG/DL (60-99); POTASSIUM, SERUM 4.2 MMOL/L (3.5-5.3); SODIUM, SERUM 138 MMOL/L (135-148)
[2016-08-14 05:58] LABS: BAND NEUTROPHILS 1 %; IMMATURE GRANS ABSOLUTE (CALC) 0.14 10/3/uL (0.0-0.11); LYMPHOCYTES 5 %; LYMPHOCYTES ABSOLUTE (CALC) 0.71 10/3/uL (0.67-4.30); METAMYELOCYTES 1 %; MONOCYTES 4 %; MONOCYTES ABSOLUTE (CALC) 0.56 10/3/uL (0.21-1.20); NEUTROPHILS ABSOLUTE (CALC) 12.69 10/3/uL (2.02-8.40); PLATELET ESTIMATE ADQ (ADEQUATE); SEGMENTED NEUTROPHIL (0) 89 %; TOTAL NUCLEATED CELLS 100
[2016-08-15 05:20] LABS: HEMATOCRIT 38.4 % (40.0-51.0); HEMOGLOBIN 12.6 g/dL (13.6-17.8); MEAN CORPUS HGB CONC 32.8 g/dL (32.0-36.0); MEAN CORPUSCULAR HEMOGLOB 28.6 pg (26.0-34.0); MEAN CORPUSCULAR VOLUME 87.3 fL (80-100); MEAN PLATELET VOLUME 9.8 fL (9.2-13.0); RBC DISTRIBUTION WIDTH 16.4 % (12.0-16.0); WHITE BLOOD CELLS 15.9 10/3/uL (4.5-10.5)
[2016-08-15 05:23] LABS: MANUAL DIFF YES %; PLATELET COUNT 249 10/3/uL (150-400)
[2016-08-15 05:54] LABS: ANISOCYTOSIS 1+ (5-10/OIF) (0-5/OIF); BAND NEUTROPHILS 1 %; LYMPHOCYTES 11 %; LYMPHOCYTES ABSOLUTE (CALC) 1.75 10/3/uL (0.67-4.30); METAMYELOCYTES 1 %; MONOCYTES 5 %; MYELOCYTES 4 %; NEUTROPHILS ABSOLUTE (CALC) 12.56 10/3/uL (2.02-8.40); PLATELET ESTIMATE ADQ (ADEQUATE); SEGMENTED NEUTROPHIL (0) 78 %; TOTAL NUCLEATED CELLS 100
[2016-08-16] MEDS ORDERED: CEFAZ1 IV (11:35)
[2016-08-16] MEDS ORDERED: MIRALAX POWDER1 PKT PO (11:40)
== END 2016-08-16 14:15 | disposition home or self-care (01) | DRG 603 ==
LOC: ER 15:06 → 4SO 18:18 → 4EA 08-10 17:10
PROVIDERS: Emergency Medicine; Internal Medicine; Nurse Practitioner Family
PROC: 0SB Lower Joints, Excision (ICD-10-PCS; 2016-08-12)
PROC: 0JPT0XZ Removal of Tunneled Vascular Access Device from Trunk Subcutaneous Tissue and Fascia, Open Approach (ICD-10-PCS; 2016-08-14)
PROC: 02HV33Z Insertion of Infusion Device into Superior Vena Cava, Percutaneous Approach (ICD-10-PCS; principal; 2016-08-16)
PROC: 4A02X4A Measurement of Cardiac Electrical Activity, Guidance, External Approach (ICD-10-PCS; 2016-08-16)
DX: L03.115 Cellulitis of right lower limb (principal); C78.00 Secondary malignant neoplasm of unspecified lung; C83.70 Burkitt lymphoma, unspecified site; I48.0 Paroxysmal atrial fibrillation; J44.9 Chronic obstructive pulmonary disease, unspecified; B95.61 Methicillin susceptible Staphylococcus aureus infection as the cause of diseases classified elsewhere
CPT/HCPCS: 36569; 73080-RT; 73620-RT; 73718-RT; 76376; 80048; 80053; 83605; 85007; 85025; 85027; 85652; 86140; 87015; 87040; 87070; 87075; 87077; 87102; 87116; 87150; 87186; 87205; 88300; 89051; 89060; 93005; 93306; 93312; 93320; 93325; 94640; 96374; 97161-GP; 99284; A9270-GY; C1751; G8978-CI-GP; G8979-CI-GP; G8980-CI-GP; J0360; J0690; J2405; J3370